=== PATIENT | female | born 1955 | race Caucasian/White ===

== ENCOUNTER 2022-01-07 10:28 | Outpatient (CLI) | payer MEDICARE, OTHER ==
[2022-01-07] MEDS ORDERED: Magnevist 469MG/ML 20 ML VIAL ONE (11:21)
== END 2022-01-07 10:29 | disposition home or self-care (01) ==
LOC: MRI 10:28
PROVIDERS: ATTEND Otolaryngology Otolaryngic Allergy
DX: H93.A9 Pulsatile tinnitus, unspecified ear (principal)
CPT/HCPCS: 70544; 70553; A9579